=== PATIENT | male | born 1995 | race Caucasian/White ===

== ENCOUNTER 2018-08-27 20:15 | Emergency (ER) | payer OTHER ==
[~2018-08-27] VITALS: Ht 182.9 cm; Wt 88.5 kg
[2018-08-27] MEDS ORDERED: FLUOXETINE HCL20 MG PO (20:21)
[2018-08-27] MEDS ORDERED: VISTARIL50 MG PO (20:22)
[2018-08-27] MEDS ORDERED: EC-NAPROSYN500 MG PO (20:22)
--- NOTE | 2018-08-28 11:39 | EKG ---
[facility] [address] [facility] [place], [place] [address] Signed Normal sinus rhythm with sinus arrhythmia Normal ECG No previous ECGs available Confirmed by MARIA E AYALA DO ([id number]) on 08/28/2018 11:39:30 AM Electronically Signed By: MARIA E AYALA DO 08/28/18 1139 PATIENT NAME: HERBERT KRAUSE Electrocardiogram DATE OF : [birth year] PHYSICIAN: MARIA E AYALA DO REPORT #: [id number] REPORT IS CONFIDENTIAL AND NOT TO BE RELEASED WITHOUT AUTHORIZATION
== END 2018-08-28 01:00 | disposition home or self-care (01) ==
LOC: ED 20:15
DX: R07.89 Other chest pain (principal); R06.02 Shortness of breath; R55 Syncope and collapse; I10 Essential (primary) hypertension; J45.909 Unspecified asthma, uncomplicated; Z87.891 Personal history of nicotine dependence; Z79.899 Other long term (current) drug therapy
CPT/HCPCS: 71046; 80053; 83735; 84484; 85025; 93005; 93010; 99285-25

== ENCOUNTER 2019-03-13 19:35 | Emergency (ER) | payer OTHER ==
[~2019-03-13] VITALS: Ht 182.9 cm; Wt 90.7 kg
[~2019-03-13 19:35] MED LIST: EC-NAPROSYN500 MG PO; FLUOXETINE HCL20 MG PO; VISTARIL50 MG PO
[2019-03-13] MEDS ORDERED: BUSPIRONE HCL10 MG PO (20:21)
== END 2019-03-13 20:47 | disposition home or self-care (01) ==
LOC: ED 19:35
PROC: 0CQ1XZZ Repair Lower Lip, External Approach (ICD-10-PCS; principal; 2019-03-13)
DX: S01.511A Laceration without foreign body of lip, initial encounter (principal); I10 Essential (primary) hypertension; J45.909 Unspecified asthma, uncomplicated; Z79.899 Other long term (current) drug therapy; Y08.89XA Assault by other specified means, initial encounter; Y92.149 Unspecified place in prison as the place of occurrence of the external cause
CPT/HCPCS: 40650; 99284-25

== ENCOUNTER 2024-12-29 18:26 | Emergency (ER) | payer OTHER ==
[~2024-12-29] VITALS: Ht 182.9 cm; Wt 122.4 kg
[~2024-12-29 18:26] MED LIST changes: +BUSPIRONE HCL10 MG PO
[2024-12-29 19:01] LABS: BASOPHILS 0.8 % (0.2-1.2); EOSINOPHILS 2.3 % (0.8-7.0); LYMPHOCYTES 30.9 % (21.8-53.1); MCH 28.1 PG (25.7-32.2); MCHC 34.0 g/dL (32.3-36.5); MCV 82.7 fL (79.0-92.2); MONOCYTES 6.4 % (5.3-12.2); NEUTROPHILS 59.3 % (34.0-67.9); RBC 5.72 M/uL (4.63-6.08)
[2024-12-29 19:17] LABS: ALT (SGPT) 46.0 U/L (14-59); AST (SGOT) 22.0 U/L (15-37); GLOMERULAR FILTRATION RATE,EST 115.0 mL/min (>60); PROTEIN, TOTAL 6.9 g/dL (6.4-8.2); UREA NITROGEN 13.0 mg/dL (7-18)
[2024-12-29 19:25] LABS: BLOOD/HGB, URINE TRACE-I (Negative); KETONE, URINE NEGATIVE (Negative); LEUK ESTERASE, URINE TRACE (negative); NITRITE, URINE NEGATIVE (negative)
[2024-12-29 19:38] LABS: BACTERIA, URINE NONE SEEN /hpf (negative); CASTS, URINE NONE SEEN \\lpf; CRYSTALS, URINE NONE SEEN (0-1+); EPITHELIAL CELLS, URINE NONE SEEN /lpf (0-1+); REFLEX CULTURE, URINE Yes (No)
[2024-12-29] MEDS ORDERED: KETOROLAC TROMETHAMINE 15 MG/ML VIAL IV ONE (19:45)
[2024-12-29] MEDS ORDERED: LACTATED RINGER'S 1,000 ML IV ONE (19:45)
[2024-12-29] MEDS ORDERED: MORPHINE SULFATE 4 MG/ML VIAL IV ONE (19:45)
[2024-12-29] MEDS ORDERED: PYRIDIUM200 MG PO (20:51)
[2024-12-29] MEDS ORDERED: MACROBID 100 M100 MG PO (20:51)
[2024-12-29] MEDS ORDERED: CYCLOBENZAPRINE10 MG PO (20:51)
[2024-12-29] MEDS ORDERED: CYCLOBENZAPRINE HCL 10 MG HOME.PACK PO ONE (21:00)
[2024-12-29] MEDS ORDERED: NITROFURANTOIN MONOHYD MACROCR 100 MG HOME.PACK PO ONE (21:00)
[2024-12-29] MEDS ORDERED: PHENAZOPYRIDINE HCL 100 MG TAB PO ONE (21:00)
[2024-12-29 21:28] VITALS: BP 159/105
== END 2024-12-29 21:20 | disposition home or self-care (01) ==
LOC: ED 18:26
PROVIDERS: Emergency Medicine
DX: N39.0 Urinary tract infection, site not specified (principal); R10.A2 Flank pain, left side; I10 Essential (primary) hypertension; J45.909 Unspecified asthma, uncomplicated; Z79.899 Other long term (current) drug therapy; Z91.040 Latex allergy status; Z91.013 Allergy to seafood; Z87.891 Personal history of nicotine dependence
CPT/HCPCS: 36415; 74176; 80053; 81001; 85025; 87088; 96374; 96375; 99284-25; J1885; J2270; J2405; J7121